=== PATIENT | female | born 1980 | race Caucasian/White ===

== ENCOUNTER 2016-10-10 14:27 | Emergency (ER) | payer OTHER ==
[2016-10-10 14:47] VITALS: BP 141/96
[2016-10-10] MEDS ORDERED: NORCO-5 PO ONE (15:04)
--- NOTE | 2016-10-10 15:24 | PROVIDER DOCUMENTATION ---
HPI-Musculoskeletal Pain/Inj <Sheba RodríguezJanee - Last Filed: 10/10/16 15:37> - GENERAL Source: patient - HX OF PRESENT ILLNESS-MUSKULOSKELTAL Quality of Pain: reports: dull Severity in ED: moderate Onset/Duration: abrupt, this afternoon Timing: still present, constant Modifying Factors: worse with: movement, palpation Locality of Occurance: Home Similar Symptoms Previously?: No Recently seen or treated by another doctor?: No - UPPER EXTREMITY PAIN/INJURY Extremities Pain Location: forearm: left Context / Method of Injury: reports: direct blow Associated Symptoms: reports: denies symptoms <Dave Bauer - Last Filed: 10/13/16 12:37> - GENERAL Chief Complaint: General Adult Stated Complaint: EXTREMITY INJURY Time Seen by Provider: 10/10/16 15:03 - HX OF PRESENT ILLNESS-MUSKULOSKELTAL Nature of Presenting Problem: pt is a 36 y/o F that presents to the ER with left forearm pain after hitting it. patient has history surgical repair to arm (Dave Bauer) Review of Systems - Adult - REVIEW OF SYSTEMS - ADULT Constitutional: reports: no symptoms reported Eyes: reports: no symptoms reported Ears, Nose, Mouth & Throat: reports: no symptoms reported Cardiovascular: reports: no symptoms reported Respiratory: reports: no symptoms reported Gastrointestinal: reports: no symptoms reported Genitourinary: reports: no symptoms reported Musculoskeletal: reports: bone pain. denies: joint pain Integumentary: reports: no symptoms reported Neurological: reports: no symptoms reported Psychiatric: reports: no symptoms reported Endocrine: reports: no symptoms reported Hematologic/Lymphatic: reports: no symptoms reported Allergic/Immunologic: reports: no symptoms reported All Other Systems: Reviewed and Negative <Dave Bauer - Last Filed: 10/13/16 12:37> Past History - Adult - PAST MEDICAL HISTORY-ADULT Review of Records: reports: Old Records Reviewed, Nursing Assessment Review, Medications Reviewed Psychiatric: reports: anxiety, bipolar - PRIOR SURGERIES/PROCEDURES Surgical/Procedure History: reports: BTL, - IMMUNIZATION STATUS Childhood Immunizations: See Nurse Assessment Flu Vaccine: See Nurse Assessment - FAMILY HISTORY Family History: reviewed, not pertinent - SOCIAL HISTORY Smoking: quit less than 1 year, cigarettes Living Situation: family <Dave Bauer - Last Filed: 10/13/16 12:37> Physical Exam-Injury Related - Physical Exam-Injury Related Initial Vital Signs Reviewed: Yes General Appearance: alert, no apparent distress Eyes: PERRL/EOMI, pink conjunctivae Head, Ears, Nose, Mouth & Throat: normocephalic/atraumatic, moist mucous membranes, normal ENT inspection Neck: full range of motion, normal inspection Respiratory: lungs clear, normal breath sounds, no respiratory distress, no accessory muscle use Cardiovascular: regular rate, rhythm, no edema, no murmur Abdominal Exam: normal bowel sounds, non tender, soft Extremity: no calf tenderness, normal capillary refill, pelvis stable, tenderness (left forearm), other (has full ROM to left arm) Integumentary: normal color, warm/dry Neurologic: grossly normal, no motor/sensory deficits Psych/Mental Status: normal mood/affect, normal thought content, normal thought process, oriented x 3 <Dave Bauer - Last Filed: 10/13/16 12:37> Progress - XRAY 1 XRAY: Right XRAY Study: Forearm Impression: Normal (post surgical changes, nad) <Sheba Rodríguez - Last Filed: 10/10/16 15:37> <Dave Bauer - Last Filed: 10/13/16 12:37> - PLAN OF CARE/RESULTS Progress/Plan/Lab Results: Vital Signs Temp Pulse Resp BP Pulse Ox 10/10/16 14:42 98 F 92 H 34 H 141/96 100 Tetracyclines Allergy (Verified 07/19/15 20:32) RASH Venlafaxine HCl [Effexor Xr] 150 mg PO DAILY 07/19/15 Orders Category Date Time Status FOREARM-LEFT [RAD] Stat Exams 10/10/16 14:59 Taken Hydrocodone/APAP 5 mg/325 mg [[place]-5] Med 10/10/16 15:04 Discontinued 1 each PO NOW ONE Oxycodone/APAP 5 mg/325 mg [Percocet-5] Med 10/10/16 15:31 Discontinued 1 each PO NOW ONE (Sheba Rodríguez) Vital Signs Temp Pulse Resp BP Pulse Ox 10/10/16 14:42 98 F 92 H 34 H 141/96 100 Tetracyclines Allergy (Verified 07/19/15 20:32) RASH Venlafaxine HCl [Effexor Xr] 150 mg PO DAILY 07/19/15 Gabapentin [Neurontin] 100 mg PO QHS #14 capsule 10/10/16 BIPOLAR DISORDER, UNSPECIFIED (10/10/16) ANXIETY DISORDER, UNSPECIFIED (10/10/16) PAIN IN RIGHT FOREARM (10/10/16) OTHER DETENTION WORKER (CURRENT) DRUG THERAPY (10/10/16) PERSONAL HISTORY OF NICOTINE DEPENDENCE (10/10/16) Orders Category Date Time Status FOREARM-LEFT [RAD] Stat Exams 10/10/16 14:59 Completed Hydrocodone/APAP 5 mg/325 mg [[place]-5] Med 10/10/16 15:04 Discontinued 1 each PO NOW ONE Oxycodone/APAP 5 mg/325 mg [Percocet-5] Med 10/10/16 15:31 Discontinued 1 each PO NOW ONE (Dave Bauer) Departure - Departure Time of Disposition Order: 15:38 Certified Medical Emergency: Emergent <Sheba Rodríguez - Last Filed: 10/10/16 15:37> - Departure Time of Disposition Order: 15:40 Certified Medical Emergency: Emergent <Dave Bauer - Last Filed: 10/13/16 12:37> - Departure DIAGNOSIS: Right forearm pain Disposition: HOME 01 Condition: Stable Additional Instructions: Follow up with your primary care physician ED Follow Up Instructions: You have been treated by a care provider in the Emergency Department. These instructions are being provided to you so you can have an understanding of how to care for yourself upon discharge. Upon discharge from the Emergency Department, you are responsible for making arrangements for follow-up care by a physician of your choice. Take all prescribed medications as directed. Return to the Emergency Department immediately for any new or worsening symptoms. You may call the Physician Referral phone number at [phone] to obtain a list of Physicians who are taking new patients. Prescriptions: Gabapentin [Neurontin] 100 mg PO QHS #14 capsule Referrals: None,PCP [Primary Care Provider] - Raymon Olson MD [STAFF PHYSICIAN] - Forms: Return to School/Parent Work Instructions: Gabapentin capsules or tablets, Muscle Pain, Adult Attestation - Scribe Verification/Attestation Scribe:: Dave Bauer Acting as Scribe for:: Sheba Rodríguez Scribe documention review:: This chart was documented by a scribe and accurately reflects the service the provider performed and the decisions made by the provider. - Physician/ CHAPARRO Attestation Patient care was provided by Advanced Practice Provider:: Yes Advanced Practice Provider:: Sheba Rodríguez Advanced Practice Provider documentation review:: The Mid-level provider documentation, treatment plan and medical decision making was reviewed by the physician who agrees with all treatment and medical decision making by the P. <Dave Bauer - Last Filed: 10/13/16 12:37> Physician Attestation - Physician Attestation I, the provider, attest to the following statement:: Sheba Rodríguez Physician documentation Attestation:: This documentation recorded by the scribe accurately reflects the service I personally performed and the decisions made by me. <Dave Bauer - Last Filed: 10/13/16 12:37>
[2016-10-10] MEDS ORDERED: PERCOCET-5 PO ONE (15:31)
--- NOTE | 2016-10-10 16:06 | Diag Imaging Result Document ---
PROCEDURE NAME: FOREARM-LEFT - 10/10/2016 LEFT FOREARM, 2 VIEWS: COMPARISON: No comparison exam. FINDINGS: There are metallic orthopedic plates with anchoring screws which extend around the mid to distal shafts of the radius and ulna. There are linear lucencies at the mid shaft of the radius and ulna, which are mildly ill defined and are suggestive of incompletely united but older fractures. There is no definite acute fracture identified. Alignment appears anatomic. IMPRESSION: Probably older fractures of radius and ulna status post internal surgical fixation. Alignment appears anatomic. There is no definite acute fracture identified.
== END 2016-10-10 15:50 | disposition home or self-care (01) ==
LOC: P.ED 14:27
DX: M79.631 Pain in right forearm (principal); F41.9 Anxiety disorder, unspecified; F31.9 Bipolar disorder, unspecified; Z87.891 Personal history of nicotine dependence; Z79.899 Other long term (current) drug therapy
CPT/HCPCS: 99283

== ENCOUNTER 2016-10-14 22:29 | Emergency (ER) ==
--- NOTE | 2016-10-14 23:28 | ED EKG INTERP ---
EKG Interpretation - EKG Time of EKG reading by physician:: 22:40 EKG Read and Signed by:: Titus Velasco EKG Interpretation (*Must complete 3 of following elements*): Normal Rate: 108 Rhythm: SINUS TACH [place]lette: normal QRS: normal NM Interval: normal ST Wave: normal Attestation - Scribe Verification/Attestation Scribe:: Denisse Allen Acting as Scribe for:: Titus Velasco Scribe documention review:: This chart was documented by a scribe and accurately reflects the service the provider performed and the decisions made by the provider. Physician Attestation - Physician Attestation I, the provider, attest to the following statement:: Titus Velasco Physician documentation Attestation:: This documentation recorded by the scribe accurately reflects the service I personally performed and the decisions made by me.
--- NOTE | 2016-10-15 01:54 | PROVIDER DOCUMENTATION ---
HPI-General Adult - General Source: patient, family - History of Present Illness -Gen Adult Nature of Presenting Problems: PT IS A 36YOF PRESENTING TO THE ED C/O FALL. PTS FAMILY STATES "HE HEARD HER SCREAM AND FOUND HER AT THE BOTTOM OF THE STAIRS CRYING". PT STATES SHE FELL DOWN APPROXIMATELY 10 STAIRS AND HAS A SMALL CONTUSION TO THE BACK OF HER HEAD BUT NO KNOWN LOC OR COMPLAINT OF ANY OTHER INJURY AT THIS TIME. FAMILY ALSO STATES "SHE HAD MAYBE 8 BEERS TONIGHT AND STATES SHE DOESN'T DRINK DAILY" PT ADMITS TO SMOKING MARIJUANA OCCASIONALLY. PT TOO INTOXICATED AT THIS TIME TO EVALUATE ANY NEURO DEFICITS ACCURATELY AT TIME OF EXAM. NO OTHER INJURIES OR COMPLAINTS NOTED AT THIS TIME Location of Pain/Injury: reports: head Pain Radiation: reports: no radiation Quality of Pain: reports: aching Severity: reports: mild Onset/Duration: reports: just prior to arrival Timing: reports: still present Context/Activities at Onset: reports: recent trauma history Modifying Factors: improves with: nothing Associated Symptoms: reports: anxiety, other (PT HIGHLY INTOXICATED UNDER ETOH AND UNSURE IF ANY OTHER SUBSTANCES). denies: arm pain, back/neck pain, loss of appetite Similar Symptoms Previously?: No Recently seen or treated by another doctor?: No <Denisse Allen - Last Filed: 10/15/16 01:49> <Titus Velasco - Last Filed: 10/15/16 04:41> - General Chief Complaint: Head Injury Stated Complaint: @2225 FALL Time Seen by Provider: 10/14/16 22:43 Allergies/Adverse Reactions: Patient Allergies Allergy/AdvReac Type Severity Reaction Status Date / Time Tetracyclines Allergy RASH Verified 10/14/16 23:45 Home Medications: Home Medication List Medication Instructions Recorded Confirmed Last Taken Type Venlafaxine HCl [Effexor Xr] 75 mg PO DAILY 07/19/15 10/14/16 07/19/15 History Gabapentin [Neurontin] 600 mg PO 4XDAY 10/14/16 10/14/16 Unknown History Oxycodone/APAP 5 mg/325 mg 5 mg PO BID 10/14/16 10/14/16 Unknown History [Percocet-5] Review of Systems - Adult - REVIEW OF SYSTEMS - ADULT Constitutional: reports: no symptoms reported Eyes: reports: no symptoms reported Ears, Nose, Mouth & Throat: reports: no symptoms reported Cardiovascular: reports: no symptoms reported Respiratory: reports: no symptoms reported Gastrointestinal: reports: no symptoms reported Genitourinary: reports: no symptoms reported Musculoskeletal: reports: see HPI, other (CONTUSION TO BACK OF HEAD). denies: bone pain, back pain, muscle aches Integumentary: reports: no symptoms reported Neurological: reports: no symptoms reported Psychiatric: reports: see HPI, anti-depressant use, alcohol/drug dependence, emotional problems. denies: suicidal thoughts Endocrine: reports: no symptoms reported Hematologic/Lymphatic: reports: no symptoms reported Allergic/Immunologic: reports: no symptoms reported All Other Systems: Reviewed and Negative <Denisse Allen - Last Filed: 10/15/16 01:49> Past History - Adult - PAST MEDICAL HISTORY-ADULT Review of Records: reports: Old Records Reviewed, Nursing Assessment Review, Medications Reviewed, Social history reviewed & non-contributory. Major Childhood Illnesses: reports: denies history Cardiovascular: reports: denies history Respiratory: reports: denies history Gastrointestinal: reports: denies history Obstetrical/Gynecological: reports: denies history Genitourinary: reports: denies history Musculoskeletal: reports: denies history Neurological: reports: denies history Psychiatric: reports: anxiety, bipolar Endocrine/Immune: reports: denies history Other Conditions: reports: denies history - PRIOR SURGERIES/PROCEDURES Surgical/Procedure History: reports: BTL, - IMMUNIZATION STATUS Childhood Immunizations: See Nurse Assessment Flu Vaccine: See Nurse Assessment - FAMILY HISTORY Family History: reviewed, not pertinent - SOCIAL HISTORY Smoking: cigarettes, greater than 1 pack/day Provider spent 3-5 mins advising pt. on dangers of tobacco.: Discussed manners to quit use, and f/u contacts for add'l counseling. Substance Use: alcohol, marijuana Alcohol Use Frequency: 3-4 times a week Number of drinks per typical drinking period:: 5-10 drinks Living Situation: family <Denisse Allen - Last Filed: 10/15/16 01:49> Physical Exam-General - PHYSICAL EXAM-ADULT Initial Vital Signs Reviewed: Yes - CONSTITUTIONAL General Appearance: mild distress, lethargic, slow to respond. negative: appears well, alert, no apparent distress - EYES Eyes: PERRL/EOMI, pink conjunctivae - HEAD, EARS, NOSE, MOUTH & THROAT HENMT: normocephalic/atraumatic, moist mucous membranes, normal ENT inspection, TMs normal, pharynx normal - NECK Neck: non-tender, full range of motion, supple, normal inspection - RESPIRATORY Respiratory: chest non-tender, lungs clear, normal breath sounds, no pleuratic chest pain, no respiratory distress, no accessory muscle use - CARDIOVASCULAR Cardiovascular: normal peripheral pulses, regular rate, rhythm, no edema, no gallop, no JVD, no murmur - GASTROINTESTINAL (ABDOMEN) Abdominal Exam: normal bowel sounds, non tender, soft, no organomegaly, no pulsatile mass - LYMPHATIC Lymphatic: no adenopathy - MUSCULOSKELETAL Back Exam: normal inspection, no CVA tenderness, no vertebral tenderness Extremity: normal range of motion, no pedal edema, no calf tenderness, normal capillary refill, pelvis stable. negative: non-tender, normal gait, normal inspection - SKIN Integumentary: normal turgor, warm/dry, pallor, other (CONTUSION TO BACK OF HEAD ). negative: normal color - NEUROLOGIC Neurologic: abnormal cerebellar tests, abnormal director of public works II-XII, abnormal gait, motor weakness (POSSIBLY DUE TO ETOH INTOXICATION). negative: director of public works II-XII nml as tested, grossly normal, no motor/sensory deficits - PSYCHIATRIC Psych/Mental Status: normal thought content, normal thought process, depressed affect. negative: normal mood/affect, oriented x 3 <Denisse Allen - Last Filed: 10/15/16 01:49> Departure <Denisse Allen - Last Filed: 10/15/16 01:49> - Departure Time of Disposition Order: 04:39 Certified Medical Emergency: Emergent <Titus Velasco - Last Filed: 10/15/16 04:41> - Departure DIAGNOSIS: AA (alcohol abuse), Fall (on) (from) other stairs and steps, initial encounter Disposition: HOME 01 Condition: Good Additional Instructions: stop drinking alcohol Attestation - Scribe Verification/Attestation Scribe:: Denisse Allen Acting as Scribe for:: Titus Velasco Scribe documention review:: This chart was documented by a scribe and accurately reflects the service the provider performed and the decisions made by the provider. <Denisse Allen - Last Filed: 10/15/16 01:49> Physician Attestation - Physician Attestation I, the provider, attest to the following statement:: Titus Velasco Physician documentation Attestation:: This documentation recorded by the scribe accurately reflects the service I personally performed and the decisions made by me. <Denisse Allen - Last Filed: 10/15/16 01:49>
[2016-10-15 01:57] LABS: URINE MICRO REVIEW NEEDED? NO; URINE SOURCE CLEAN CATCH
[2016-10-15 02:01] LABS: BILIRUBIN URINE NEGATIVE (NEGATIVE); BLOOD URINE NEGATIVE (NEGATIVE); COLOR STRAW; GLUCOSE URINE NEGATIVE (NEGATIVE); LEUKOCYTES URINE SMALL (NEGATIVE); NITRITE URINE NEGATIVE (NEGATIVE); PROTEIN URINE NEGATIVE (NEGATIVE); SP GRAVITY URINE 1.001; TURBIDITY URINE CLEAR (CLEAR); UROBILINOGEN URINE NORMAL (NORMAL)
[2016-10-15 02:12] LABS: UR AMPHETAMINES QUAL NONE DETECTED (NONE DETECT); UR BARBITUATES QUAL NONE DETECTED (NONE DETECT); UR BENZODIAZEPIN QUAL PRESUMPTIVE POSITIVE (NONE DETECT); UR CANNABINOIDS QUAL PRESUMPTIVE POSITIVE (NONE DETECT); UR COCAINE QUAL NONE DETECTED (NONE DETECT); UR METHADONE QUAL NONE DETECTED (NONE DETECT); UR OPIATES QUAL NONE DETECTED (NONE DETECT); UR OXYCODONE QUAL NONE DETECTED (NONE DETECT); UR PCP QUAL NONE DETECTED (NONE DETECT)
[2016-10-15 02:42] LABS: UR EPITHELIAL CELLS <10 /HPF (<10); URINE BACTERIA NEGATIVE /HPF; URINE RBC <10 /HPF (<10); URINE WBC <10 /HPF (<10)
[2016-10-15 02:43] LABS: URINE CULTURE NEEDED? NO
[2016-10-15 03:07] LABS: AGAP 15; ALBUMIN 3.7 g/dL (3.5-5.0); ALKALINE PHOSPHATASE 61 U/L (32-104); BUN 7 mg/dL (8-22); CALCIUM 8.9 mg/dL (8.8-10.2); CHLORIDE 105 mmol/L (98-107); COSMO 288; GOT 13 U/L (10-30); GPT 8 U/L (10-36); POTASSIUM 4.3 mmol/L (3.5-5.1); SODIUM 146 mmol/L (136-145); TCO2 26 mmol/L (25-35); TOTAL BILIRUBIN 0.12 mg/dL (0.20-1.00); TOTAL PROTEIN 6.1 g/dL (6.3-8.3)
[2016-10-15] MEDS ORDERED: NS 1,000 ML IV ONE (03:36)
[2016-10-15] MEDS ORDERED: NS 1,000 ML ONE (03:36)
[2016-10-15 04:52] VITALS: BP 98/45
--- NOTE | 2016-10-15 06:19 | EKG Report ---
Test Performed on : 10/14/2016 10:40:31 PM Test Reason : No Order in Mettl Blood Pressure : / mmHG Vent. Rate : 108 BPM Atrial Rate : 108 BPM P-R Int : 150 ms QRS Dur : 086 ms QT Int : 338 ms P-R-T Axes : 067 066 041 degrees QTc Int : 452 ms Sinus tachycardia. Otherwise normal ECG When compared with ECG of 20-JUN-2016 22:35, No significant change was found Unconfirmed Result
--- NOTE | 2016-10-15 08:05 | Diag Imaging Result Document ---
PROCEDURE NAME: HEAD/C-SPINE W/O CONTRAST - 10/14/[address], 10/14/2016: COMPARISON: None. FINDINGS: FINDINGS: The ventricles and sulci are normal in size and contour. There is no mass, hemorrhage, or evidence of acute ischemia. The bony calvaria is intact. The visualized paranasal sinuses and mastoid air cells are clear. IMPRESSION: Negative head CT. CT CERVICAL SPINE, 10/14/2016: COMPARISON: None. FINDINGS: Alignment is straightened. No fracture or subluxation. Vertebral body heights are preserved. There is mild disk degeneration at C5-C6 with some disk space narrowing. No central canal stenosis. IMPRESSION: Mild degenerative disk disease. No acute disease.
== END 2016-10-15 04:52 | disposition home or self-care (01) ==
LOC: ED 22:29
DX: S00.93XA Contusion of unspecified part of head, initial encounter (principal); F10.10 Alcohol abuse, uncomplicated; R53.83 Other fatigue; S09.90XA Unspecified injury of head, initial encounter; F41.9 Anxiety disorder, unspecified; F31.9 Bipolar disorder, unspecified; F17.210 Nicotine dependence, cigarettes, uncomplicated; Z71.6 Tobacco abuse counseling; W10.9XXA Fall (on) (from) unspecified stairs and steps, initial encounter; Z79.899 Other long term (current) drug therapy
CPT/HCPCS: 70450; 72125; 80053; 81001; 93005; G0480; J7030; 80320; 80324; 80345; 80346; 80349; 80353; 80358; 80361; 80365; 83992